=== PATIENT | male | born 1955 | race Caucasian/White ===

== ENCOUNTER 2022-05-09 19:41 | Observation (INO) | payer BC ==
[2022-05-09 19:59] LABS: #Eosinphils 0.2 thou/uL (0.0-0.7); #Lymphocytes 1.7 thou/uL (1.20-3.40); #Monocytes 0.7 thou/uL (0.11-0.59); #Neutrophils 5.7 thou/uL (1.40-6.50); %Basophils 0.4 % (0.0-1.0); %Lymphocytes 20.4 % (21.0-51.0); %Monocytes 8.9 % (0.0-10.0); %Neutrophils 67.5 % (42.0-75.0); Hemoglobin 16.7 g/dL (14.0-18.0); Mean Corpuscular HGB CONC 32.5 g/dL (32.0-36.0); Mean Corpuscular Hemoglobin 30.5 pg (27.0-31.0); Mean Corpuscular Volume 93.8 fL (78.0-98.0); Mean Platelet Volume 8.2 fL (7.4-10.4); Platelet Count 205 thou/uL (130-400); RBC Distribution Width 12.9 % (11.5-14.5); Red Blood Cell (RBC) Count 5.48 mill/uL (4.70-6.10); White Blood Cell (WBC) Count 8.4 thou/uL (4.8-10.8)
[2022-05-09 20:20] LABS: ALT (SGPT) 18 U/L (8-55); AST (SGOT) 16 U/L (5-34); Alkaline Phosphatase 89 U/L (40-110); Anion Gap 14 mmol/L (10-20); BUN (Urea Nitrogen) 17 mg/dL (8.4-25.7); Bilirubin, Total 0.7 mg/dL (0.2-1.2); Calc. Creatinine Clearance 0 mL/min (70-130); Calcium 9.9 mg/dL (7.8-10.44); Carbon Dioxide 23 mmol/L (23-31); Chloride 108 mmol/L (98-107); Globulin 2.7 g/dL (2.4-3.5); Glucose 130 mg/dL (80-115); Potassium 4.1 mmol/L (3.5-5.1); Protein, Total 6.7 g/dL (5.8-8.1); Sodium 141 mmol/L (136-145)
[2022-05-09] MEDS ORDERED: Aspirin 325 MG TAB ONE (21:11)
[2022-05-09] MEDS ORDERED: Ondansetron ODT 4 MG TAB PO PRN (22:30)
[2022-05-09] MEDS ORDERED: Acetaminophen 325 MG TAB PO PRN (22:30)
[2022-05-09] MEDS ORDERED: Acetaminophen 650 MG Suppository PR PRN (22:30)
[2022-05-09] MEDS ORDERED: Ondansetron PF 4 MG/2 ML Vial IVP PRN (22:30)
[2022-05-09] MEDS ORDERED: hydrALAZINE 20 MG/ML VIAL SLOW IVP PRN (22:32)
[2022-05-09 23:44] VITALS: BMI 33.3
[2022-05-09] MEDS ORDERED: Sodium Chloride 0.9% 1,000 ML IV SCH (23:59)
[2022-05-10 01:09] LABS: Bacteria/HPF None Seen HPF (None Seen); Bilirubin Negative (Negative); Blood, Urine Negative (Negative); Clarity Turbid (Clear); Glucose, Urine (Dipstick) Normal (Negative); Ketone, Urine Negative (Negative); Leukocyte 75 Leu/uL (Negative); Nitrite Negative (Negative); Protein, Urine (Dipstick) Negative (Neg-Trace); RBC/HPF 0-3 HPF (0-3); Specific Gravity, Urine 1.022 (1.002-1.036); Squamous Epithelial 0-3 HPF (0-3); Urobilinogen Normal mg/dL (Less than 2); pH, Urine 7.5 (5.0-9.0)
[2022-05-10 01:44] LABS: Amphetamine Not Detected (NotDetected); Barbiturates Screen Not Detected (NotDetected); Benzodiazepine Screen Not Detected (NotDetected); Cocaine Metabolite Screen Not Detected (NotDetected); Methadone Not Detected (NotDetected); Methamphetamine Not Detected (NotDetected); Opiate Screen Not Detected (NotDetected); Oxycodone Screen Not Detected (NotDetected); Phencyclidine (PCP) Not Detected (NotDetected); THC/Cannabinoid Screen Not Detected (NotDetected); Tricyclic Screen Not Detected (NotDetected)
[2022-05-10 04:05] VITALS: TEMP 98
[2022-05-10 05:04] LABS: #Eosinphils 0.4 thou/uL (0.0-0.7); #Lymphocytes 2.9 thou/uL (1.20-3.40); #Monocytes 0.8 thou/uL (0.11-0.59); #Neutrophils 4.2 thou/uL (1.40-6.50); %Basophils 0.6 % (0.0-1.0); %Eosinophils 4.7 % (0.0-10.0); %Lymphocytes 34.8 % (21.0-51.0); %Monocytes 9.9 % (0.0-10.0); Hemoglobin 15.5 g/dL (14.0-18.0); Mean Corpuscular Hemoglobin 31.2 pg (27.0-31.0); Mean Corpuscular Volume 94.4 fL (78.0-98.0); Mean Platelet Volume 7.9 fL (7.4-10.4); Platelet Count 198 thou/uL (130-400); RBC Distribution Width 12.8 % (11.5-14.5); Red Blood Cell (RBC) Count 4.96 mill/uL (4.70-6.10); White Blood Cell (WBC) Count 8.4 thou/uL (4.8-10.8)
[2022-05-10 05:23] LABS: Anion Gap 10 mmol/L (10-20); BUN (Urea Nitrogen) 17 mg/dL (8.4-25.7); Calc. Creatinine Clearance 100 mL/min (70-130); Calcium 9.4 mg/dL (7.8-10.44); Carbon Dioxide 27 mmol/L (23-31); Cardiac Risk 3.7 (Less than 4.5); Chloride 108 mmol/L (98-107); Cholesterol 175 mg/dl (< 200 Desired); Glucose 99 mg/dL (80-115); HDL Cholesterol 47 mg/dL (>60 Neg Risk); LDL Cholesterol, Calculated 107 mg/dL; Potassium 3.9 mmol/L (3.5-5.1); Sodium 141 mmol/L (136-145); Triglycerides 103 mg/dL (Less than 150)
[2022-05-10 11:58] VITALS: BP 111/60
== END 2022-05-10 14:31 | disposition home or self-care (01) ==
LOC: ERS 19:41 → NEURO 21:49
PROVIDERS: ADMIT Hospitalist; ATTEND Hospitalist
DX: G93.40 Encephalopathy, unspecified (principal); G25.81 Restless legs syndrome; Z79.899 Other long term (current) drug therapy; Z20.822 Contact with and (suspected) exposure to COVID-19
CPT/HCPCS: 36415; 70450; 70551; 80048; 80053; 80061; 80306; 81001; 84484; 85025; 93005; 95712; 95819; 95957; 96360; 96361; G0378; J7050; U0003; U0005